=== PATIENT | male | born 1985 | race Caucasian/White ===

== ENCOUNTER 2017-12-25 09:33 | Emergency (ER) | payer BC, MEDICAID ==
[~2017-12-25] VITALS: Ht 157.5 cm; Wt 115.0 kg
[~2017-12-25 09:33] MED LIST: NO HOME MEDS
[2017-12-25 09:38] VITALS: BP 114/77
[2017-12-25] MEDS ORDERED: TRAM50TA2 PO (10:04)
[2017-12-25] MEDS ORDERED: PENI500T2 PO (10:04)
[2017-12-25] MEDS ORDERED: ketorolac trometh inj. 60 MG/2 ML VIAL IM ONE (10:05)
== END 2017-12-25 10:14 | disposition home or self-care (01) ==
LOC: ER 09:34
DX: K02.9 Dental caries, unspecified (principal); F15.90 Other stimulant use, unspecified, uncomplicated; Z88.6 Allergy status to analgesic agent; Z90.49 Acquired absence of other specified parts of digestive tract
CPT/HCPCS: 96372; 99283; J1885